=== PATIENT | male | born 1950 | race Caucasian/White ===

== ENCOUNTER 2020-01-27 13:26 | Outpatient (CLI) | payer OTHER ==
[2020-01-27] MEDS ORDERED: IBUP200T64 PO (14:21)
[2020-01-27] MEDS ORDERED: LISINOPRIL PO (14:21)
[2020-01-27] MEDS ORDERED: VITAMIN D3 PO (14:21)
[2020-01-27] MEDS ORDERED: VITAMIN B12 PO (14:21)
[2020-01-27] MEDS ORDERED: SIMVASTATIN PO (14:21)
[2020-01-27] MEDS ORDERED: NAPR220C2 PO (14:21)
[2020-01-27 14:36] LABS: BASOPHILS # (AUTO) 0.06 x10^3/uL (0-0.1); BASOPHILS % (AUTO) 1 % (0-1); EOSINOPHILS # (AUTO) 0.04 x10^3/uL (0-0.4); EOSINOPHILS % (AUTO) 0 % (1-7); LYMPHOCYTES # (AUTO) 1.96 x10^3/uL (1-3.4); LYMPHOCYTES % (AUTO) 19 % (22-44); MD NO; MEAN CORPUSCULAR HEMOGLOBIN 33.3 pg (27.5-34.5); MEAN CORPUSCULAR HGB CONC 33.8 g/dL (33.2-36.2); MEAN PLATELET VOLUME 7.3 fL (7.4-10.4); MONOCYTES # (AUTO) 0.54 x10^3/uL (0.2-0.8); MONOCYTES % (AUTO) 5 % (2-9); NEUTROPHILS # (AUTO) 7.93 x10^3/uL (1.8-6.8); NEUTROPHILS % (AUTO) 75 % (42-75); PLATELET COUNT 279 x10^3/uL (130-400); RED CELL DISTRIBUTION WIDTH 15.3 % (9.4-14.8)
[2020-01-27 14:45] LABS: ALBUMIN 3.7 g/dL (3.4-5.0); ANION GAP 8 mmol/L (5-15); CHLORIDE 103 mmol/L (98-107); INTERNATIONAL NORMALIZED RATIO 0.94 (0.93-1.1)
[2020-01-27 14:49] LABS: ALANINE AMINOTRANSFERASE 30 U/L (12-78); ALKALINE PHOSPHATASE 72 U/L (45-117); BILIRUBIN,TOTAL 1.5 mg/dL (0.2-1.0); CREATININE 1.16 mg/dL (0.7-1.3); TOTAL PROTEIN 7.9 g/dL (6.4-8.2)
[2020-01-27 15:09] LABS: MICROSCOPIC INDICATED
== END 2020-01-27 23:59 | disposition home or self-care (01) ==
LOC: STAR 13:26
PROVIDERS: ATTEND Neurological Surgery
DX: Z01.818 Encounter for other preprocedural examination (principal); Z01.812 Encounter for preprocedural laboratory examination; Z01.811 Encounter for preprocedural respiratory examination; R94.31 Abnormal electrocardiogram [ECG] [EKG]; R82.90 Unspecified abnormal findings in urine; R79.1 Abnormal coagulation profile; M51.36 Other intervertebral disc degeneration, lumbar region; M48.062 Spinal stenosis, lumbar region with neurogenic claudication; J98.4 Other disorders of lung
CPT/HCPCS: 36415; 71046; 80053; 81001; 85025; 85610; 85730; 87086; 93005

== ENCOUNTER 2020-02-04 09:18 | Observation (INO) | payer OTHER ==
[~2020-02-04] VITALS: Ht 185.4 cm; Wt 112.1 kg
[~2020-02-04 09:18] MED LIST: BACITRACIN 50,000 UNIT ONE; BUPIVACAINE/PF-EPI 0.5% 1:200K ONE; IBUP200T64 PO; LISINOPRIL PO; NAPR220C2 PO; SIMVASTATIN PO; VANCOMYCIN 1,000 MG ONE; VITAMIN B12 PO; VITAMIN D3 PO
[2020-02-04] MEDS ORDERED: FENTANYL PF 250 MCG/5ML ONE (09:40)
[2020-02-04] MEDS ORDERED: PROPOFOL 10 MG/ML, 20ML ONE (09:40)
[2020-02-04] MEDS ORDERED: CEFAZOLIN 1,000 MG ONE ×2 (09:40)
[2020-02-04] MEDS ORDERED: LIDOCAINE-MPF 2% ,5ML ONE (09:40)
[2020-02-04] MEDS ORDERED: DEXAMETHASONE 4 MG/ML, 1ML ONE ×2 (09:40)
[2020-02-04] MEDS ORDERED: MIDAZOLAM 1 MG/ML, 2ML ONE (09:40)
[2020-02-04] MEDS ORDERED: ROCURONIUM 10MG/ML,5ML ONE (09:40)
[2020-02-04] MEDS ORDERED: ONDANSETRON 2MG/ML, 2ML ONE (09:40)
[2020-02-04] MEDS ORDERED: LIDOCAINE 4%, 4 ML SYR/CANN TP ONE (09:44)
[2020-02-04] MEDS ORDERED: LACTATED RINGERS 1,000 ML IV SCH (09:45)
[2020-02-04] MEDS ORDERED: CHLORHEXIDINE 15 ML UDC MM ONE (10:00)
[2020-02-04] MEDS ORDERED: ACETAMINOPHEN 500 MG TABLET PO ONE (10:00)
[2020-02-04] MEDS ORDERED: OXYcodone IR 5MG TABLET PO ONE (10:00)
[2020-02-04] MEDS ORDERED: ONDANSETRON 2MG/ML, 2ML IVPush PRN ×2 (10:30→13:00)
[2020-02-04] MEDS ORDERED: DIPHENHYDRAMINE 50 MG/ML, 1ML IVPush PRN ×2 (10:30→13:00)
[2020-02-04] MEDS ORDERED: HYDROmorphone 1 MG/ML, 1ML INJ IVPush PRN ×2 (10:30→13:00)
[2020-02-04] MEDS ORDERED: OXYcodone 5 MG/5 ML ORAL.SOL UDC PO PRN (10:30)
[2020-02-04] MEDS ORDERED: DIAZEPAM 5 MG/ML, 2ML IVPush PRN (10:30)
[2020-02-04] MEDS ORDERED: MEPERIDINE/PF 25MG/0.5ML IVPush PRN (10:30)
[2020-02-04] MEDS ORDERED: METHOCARBAMOL 1,000 MG in DEXTROSE 5% 100 ML IV PRN (10:30)
[2020-02-04] MEDS ORDERED: PROMETHAZINE 25 MG/ML, 1ML IVPush PRN (10:30)
[2020-02-04] MEDS ORDERED: LABETALOL 5MG/ML, 20ML IV PRN (10:30)
[2020-02-04] MEDS ORDERED: hydrALAzine 20 MG/ML, 1ML IV PRN (10:30)
[2020-02-04] MEDS ORDERED: GLYCOPYRROLATE 0.4 MG/2 ML, 2ML ONE (10:56)
[2020-02-04] MEDS ORDERED: NEOSTIGMINE 1 MG/ML, 10ML ONE (10:56)
[2020-02-04] MEDS ORDERED: FENTANYL PF 100 MCG/2ML ONE ×2 (12:47→13:09)
[2020-02-04] MEDS: FENTANYL PF 100 MCG/2ML IV PRN ×4 (12:48→13:23)
[2020-02-04] MEDS ORDERED: HYDROcodone/APAP 10/325 MG TABLET PO PRN (13:00)
[2020-02-04] MEDS ORDERED: SENNA/DOCUSATE TABLET PO PRN (13:00)
[2020-02-04] MEDS ORDERED: METHOCARBAMOL 750 MG TABLET PO PRN (13:00)
[2020-02-04] MEDS ORDERED: HYDROcodone/APAP 5/325 TABLET PO PRN (13:00)
[2020-02-04] MEDS ORDERED: BISACODYL 10 MG SUPP PR PRN (13:00)
[2020-02-04] MEDS ORDERED: METHOCARBAMOL 1,000 MG in DEXTROSE 5% 100 ML IV ONE (13:00)
[2020-02-04] MEDS ORDERED: MAGNESIUM HYDROXIDE 8%, 30ML UDC PO PRN (13:00)
[2020-02-04] MEDS ORDERED: PROMETHAZINE 25 MG/ML, 1ML IM PRN (13:00)
[2020-02-04] MEDS ORDERED: PHARMACY MAY ADJ FOR RENAL FX MC PRN (13:00)
[2020-02-04] MEDS ORDERED: ENOXAPARIN 40 MG/0.4 ML SQ SCH (13:00)
[2020-02-04] MEDS ORDERED: OXYcodone 5 MG/5 ML ORAL.SOL UDC ONE (13:13)
[2020-02-04 14:15] VITALS: BP 139/79
[2020-02-04] MEDS: D5%-0.9% NACL+KCL 20MEQ 1,000 ML IV SCH (16:29)
[2020-02-04] MEDS: CEFAZOLIN PMX 1GM/50ML 50 ML IVPB SCH (18:38)
[2020-02-04 20:36] VITALS: BP 137/83
[2020-02-04] MEDS: HYDROcodone/APAP 10/325 MG TABLET PO PRN (20:55)
[2020-02-04] MEDS: SODIUM CHLORIDE FLUSH 10ML SYR IVF SCH (21:00)
[2020-02-04 23:36] VITALS: BP 121/78
[2020-02-05] MEDS: CEFAZOLIN PMX 1GM/50ML 50 ML IVPB SCH (02:50)
[2020-02-05] MEDS: D5%-0.9% NACL+KCL 20MEQ 1,000 ML IV SCH (02:50)
[2020-02-05 04:32] VITALS: BP 157/79
[2020-02-05] MEDS ORDERED: ENOXAPARIN 40 MG/0.4 ML SQ SCH (06:00)
[2020-02-05 07:13] VITALS: BP 146/75
[2020-02-05] MEDS: HYDROcodone/APAP 10/325 MG TABLET PO PRN (08:35)
[2020-02-05] MEDS: SODIUM CHLORIDE FLUSH 10ML SYR IVF SCH (08:36)
[2020-02-05] MEDS ORDERED: LISINOPRIL 20 MG TABLET PO SCH (09:00)
[2020-02-05] MEDS ORDERED: HYDR-3240 PO (09:47)
[2020-02-05] MEDS ORDERED: METH750T87 PO (09:48)
== END 2020-02-05 11:56 | disposition home or self-care (01) ==
LOC: OUT 09:18 → ORIP 12:39 → 4NE 14:30 → DCLOUNGE 02-05 11:41
PROVIDERS: ADMIT Neurological Surgery; ATTEND Neurological Surgery
DX: Z03.818 Encounter for observation for suspected exposure to other biological agents ruled out (principal); M48.062 Spinal stenosis, lumbar region with neurogenic claudication; M51.17 Intervertebral disc disorders with radiculopathy, lumbosacral region; M47.9 Spondylosis, unspecified; I10 Essential (primary) hypertension; E78.5 Hyperlipidemia, unspecified; F12.10 Cannabis abuse, uncomplicated; Z87.891 Personal history of nicotine dependence; Z79.899 Other long term (current) drug therapy
CPT/HCPCS: 36415; 63056; 63057; 72100; 87635; 96361; 96365; 96366; 96372; 97162; 97165; G0378; J0690; J1100; J1650; J2250; J2405; J2704; J2710; J2800; J3010; J3370; J3480; J3490; J7120